=== PATIENT | male | born 1990 | race Two or more races ===

== ENCOUNTER 2016-09-06 14:13 | Emergency (ER) | payer OTHER ==
[~2016-09-06] VITALS: Ht 165.1 cm; Wt 95.0 kg
[2016-09-06] MEDS ORDERED: BACITRACIN ZINC OINT 500U/GM, 0.9 GM ONE (15:12)
[2016-09-06 15:37] VITALS: BP 129/80
== END 2016-09-06 15:41 | disposition home or self-care (01) ==
LOC: ED 15:32
DX: S91.204A Unspecified open wound of right lesser toe(s) with damage to nail, initial encounter (principal); X58.XXXA Exposure to other specified factors, initial encounter; Y93.89 Activity, other specified; Y99.8 Other external cause status; Y92.828 Other wilderness area as the place of occurrence of the external cause
CPT/HCPCS: 11750